=== PATIENT | female | born 1985 | race Caucasian/White ===

== ENCOUNTER 2021-07-11 20:07 | Emergency (ER) | payer OTHER, SELFPAY ==
[2021-07-11 20:12] VITALS: PULSE 93; RESP 18; O2SAT 96
[2021-07-11 20:23] VITALS: RESP 18
--- NOTE | 2021-07-11 20:31 | W.ED.GENAD ---
Discharge Plan Disposition Patient Disposition: HOME Condition: Improving Discharge Details Clinical Impression: Esophageal foreign body Primary Care Provider: Unknown,Unknown ED Provider: Olive Diaz Home Meds and New Rx's Prescriptions: Continued metformin 1,000 mg Tablet 1,000 mg PO DAILY RF: 0 omeprazole 20 mg Capsule,Delayed Release(Dr/Ec) 20 mg PO DAILY RF: 0 Discharge Instructions Instructions: Esophageal Foreign Body (ED) Additional Instructions: Please continue to encourage hydration. Please avoid steak and other dental needs. Please follow-up with primary care when she returns home for reevaluation. If you develop any new or worsening symptoms please seek care urgently once again. Medical Decision Making Patient is a pleasant 36-year-old female presenting today with chief complaint of foreign body sensation in throat. She reports that this began around noon after eating steak. States that she had difficulty with foreign body retainment historically. She states she is always able to have these resolved without an EGD. Denies any abdominal pain. States that she has not been able to keep down fluids or spit. Has not had any hematemesis. On exam, patient appears uncomfortable. She does appear slightly anxious. Not really visualize any foreign body. Patient is unable to swallow secretions at this time. Concern for esophageal foreign body. She and I discussed risk and benefit of effervescent granules. Patient voices understanding and wishes to proceed. Effervescent was not successful. Patient continues to be unable to keep down secretions or fluids. Will place Iv and give 1mg Glucagon. Patient requesting Tylenol. Has been vomiting frequently or heaving, states this has caused a DO. Will give IV. Glucagon was unsuccessful. As she is unable to keep down secretions, will consult with general surgery. Spoke with Dr. Wagner, she will come in to evaluate the patient for possible EGD. Just after speaing with Dr. Ross, patient passed her food bolus, is much more comfortable and able to hydrate orally. Remains asymptomatic. Feels ready for d/c. Advised against steak or furhter meat. Encouraged soft food, encouraged hydration. Advised f/u with PCP once she returns home. She is returning home to [place] in one week. Return precautions discussed. All of her questions and concerns were addressed, she is in agreement with this plan. HPI General Mode of arrival: ambulatory. Date/Time Provider Initiated Documentation: 07/11/21 20:14. Limitations to Documentation: no limitations. Information obtained by: patient and RN notes reviewed. History of Present Illness 36 year old F presents to the emergency department with the chief complaint of FB sensation in throat, described as moderate and similar to prior episodes, with intensity rated at 4. Quality is described as other (FB sensation), and is localized to the mouth (throat). Patient reports no radiation. Patient started experiencing this hour(s) (1200) and it has been constant. No relieving factors improve symptom(s), Eating worsens symptoms . Patient notes no other symptoms.. Patient did receive the following treatments prior to arrival, none Related Data Home Medications Medication Instructions Recorded Confirmed metformin 1,000 mg PO DAILY 07/11/21 07/11/21 omeprazole 20 mg PO DAILY 07/11/21 07/11/21 Allergies Allergy/AdvReac Type Severity Reaction Status Date / Time iodine Allergy Unverified 07/11/21 20:18 sumatriptan [From Imitrex] Allergy Unverified 07/11/21 20:18 General Stated Complaint: GenMedical DUNG: 3 Review of Systems Constitutional Constitutional: Reports as per HPI, Denies chills, Denies fever(s) and Denies headache(s) ENT Ears, Nose, Mouth, and Throat: Reports as per HPI and Denies headache(s) Cardiovascular Cardiovascular: Reports as per HPI, Denies chest pain and Denies dyspnea Respiratory Respiratory: Reports as per HPI, Denies cough and Denies dyspnea Gastrointestinal Gastrointestinal: Denies change in bowel habits, Reports nausea and Reports vomiting (unable to keep down any fluids) Neurologic Neurologic: Denies headache(s) [facility] Social History Smoking/Tobacco Use Status: Never Smoking risk assessment performed?: Yes Alcohol Intake: never Drug use: Never Substance use type: does not use Do you feel safe at home: Yes Do you feel safe in your relationship?: Yes Exam Const General: cooperative, healthy appearing, uncomfortable and no acute distress Nutritional Appearance: well nourished and obese Orientation: alert and awake [facility] Head: normal to inspection General nose exam: external nose normal Face and sinus: normal facial exam Mouth: oral mucosae normal, lip normal and tongue normal Teeth and gingiva: dentition normal Throat: posterior oropharynx normal, tonsils normal and uvula midline Neck Neck: normal visual inspection, no lymphadenopathy, trachea midline and supple Resp Effort & Inspection: normal respiratory effort, able to speak in complete sentences and no respiratory distress Auscultation: clear to auscultation bilaterally Cardio Rate: regular rate Rhythm: regular rhythm Heart Sounds: S1 normal and S2 normal GI Inspection: normal to inspection Palpation: nontender Skin General skin exam: no rashes or lesions noted Neuro General: patient alert and patient awake Cognition: normal cognition Speech: speech normal Gait: normal gait Psych Appearance: grossly normal and well kempt Mental Status: mental status grossly normal Speech and Movement: speech and movement normal Course Vital Signs Vital signs: Vital Signs Pulse 93 H 07/11/21 20:12 Respiratory Rate 18 07/11/21 20:12 Pulse Oximetry 96 07/11/21 20:12 Temperature Source Temporal Artery Scan 07/11/21 20:12 Pulse 93 H 07/11/21 20:12 Respiratory Rate 18 07/11/21 20:23 Respiratory Effort Non-Labored 07/11/21 20:23 Respiratory Depth Normal 07/11/21 20:23 Respiratory Pattern Normal 07/11/21 20:23 Blood Pressure Position Sitting 07/11/21 20:12 Pulse Oximetry 96 07/11/21 20:12 Oxygen Delivery Method Room Air 07/11/21 20:12 Oxygen Flow Rate 0 07/11/21 20:12 Pain Level 4 07/11/21 20:12
[2021-07-11] MEDS: Glucagon 1 MG VIAL IVP (21:09)
[2021-07-11] MEDS: ACETAMINOPHEN 1,000 MG/100 ML BTL 400 MG IVPB (21:10)
[2021-07-11 21:25] LABS: Source Nasal/Nares
--- NOTE | 2021-07-11 21:32 | NUR.NOTE ---
Nursing Note: Patient reports steak passed, no longer stuck in her esophagus. Patient now able to swallow water without any issues.
[2021-07-11 21:56] VITALS: BP 136/81; PULSE 92; TEMP 36.7; O2SAT 95
[2021-07-11 22:15] LABS: COVID-19 PCR Negative (Negative)
--- NOTE | 2021-07-12 08:29 | NUR.NOTE ---
negative covid result relayed to pt via phone-spoke to pt.Nursing Note:
== END 2021-07-11 22:09 | disposition home or self-care (01) ==
PROVIDERS: Emergency Provider Physician Assistant
DX: T18.128A Food in esophagus causing other injury, initial encounter (principal); X58.XXXA Exposure to other specified factors, initial encounter
CPT/HCPCS: 36416; 82962; 87635; 96365; 96375; 99284; J0131; J1610